=== PATIENT | male | born 1985 | race Caucasian/White ===

== ENCOUNTER 2019-08-01 13:58 | Inpatient (IN) | payer OTHER ==
[~2019-08-01] VITALS: Ht 175.2 cm; Wt 68.0 kg
[2019-08-01 14:17] VITALS: BP 139/89
--- NOTE | 2019-08-01 14:46 | NUR ---
PATIENT MEETS [facility]. PATIENT WANT[place] [facility] [place]. [place] WILL FOLLOW UP WITH PATIENT. JUAN C BRUNO B.A. LAMP STACK DEVELOPER
[2019-08-01 15:15] LABS: BASO # 0.1 10*3/uL (0.0-0.1); BASO % 0.9 % (0.0-1.0); EOS # 0.2 10*3/uL (0.0-0.4); EOS % 1.9 % (1.0-4.0); HEMATOCRIT 47.8 % (42.0-52.0); HEMOGLOBIN 15.2 g/dl (14.0-18.0); LYMPH # 2.1 10*3/uL (1.3-4.4); LYMPH % 27.1 % (27.0-41.0); MEAN CELL VOLUME 87.1 fl (80.0-94.0); MEAN CORPUSCULAR HGB 27.7 pg (27.0-31.0); MEAN CORPUSCULAR HGB CONC 31.8 g/dl (33.0-37.0); MEAN PLATELET VOLUME 10.3 fl (9.6-12.3); MONO # 0.4 10*3/uL (0.1-1.0); NEUT # 5.1 10*3/uL (2.3-7.9); NEUT % 64.8 % (47.0-73.0); PLATELET COUNT AUTOMATED 275 10*3/uL (130-400); RED BLOOD COUNT 5.49 10*6/uL (4.50-5.90); RED CELL DISTRI WIDTH 13.5 % (0-14.5); WHITE BLOOD COUNT 7.8 10*3/uL (4.8-10.8)
[2019-08-01 15:30] VITALS: BP 130/95
[2019-08-01 15:30] LABS: ALBUMIN 3.8 gm/dl (3.1-4.5); ALKALINE PHOSPHATASE 91 U/L (45-117); BUN 9 mg/dl (7-24); CHLORIDE 102 mmol/L (98-107); CREATININE 0.89 mg/dL (0.70-1.30); POTASSIUM 3.6 mmol/L (3.5-5.1); SGOT/AST 32 IU/L (3-35); SGPT/ALT 69 U/L (12-78); SODIUM 138 mmol/L (136-145); TOTAL PROTEIN 8.6 gm/dL (6.4-8.2)
--- NOTE | 2019-08-01 15:40 | NUR ---
34 year old MALE admitted to room # 516 for stabilization. 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 Compliant with admission procedure. Patient denies any anxiety, but is C/O RESTLESS LEGS AND COLD SWEATS. SEE ADMISSION ASSESSMENT.
[2019-08-01 15:44] LABS: URINE AMPHETAMINES > 1000 (1000ng/ml); URINE BARBITURATES < 200 (200ng/ml); URINE BENZODIAZEPINES < 200 (200ng/ml); URINE CANNABINOIDS (THC) < 50 (50ng/ml); URINE COCAINE < 300 (300ng/ml); URINE METHADONE < 300 (300ng/ml); URINE OPIATES < 300 (300ng/ml)
[2019-08-01 15:48] LABS: URINE PHENCYCLIDINE < 25 (25ng/ml)
--- NOTE | 2019-08-01 16:00 | NUR ---
PATIENT MEDICATED WITH REQUIP AT THIS TIME PER ORDER FOR COMPLAINTS OF RESTLESS LEGS. WILL MONITOR FOR EFFECTIVENESS.
[2019-08-01 16:53] VITALS: BP 129/86
--- NOTE | 2019-08-01 17:30 | NUR ---
PER PATIENT, REQIP HAS BEEN EFFECTIVE. NO FURTHER COMPLAINTS AT THIS TIME. RESTING.
--- NOTE | 2019-08-01 19:50 | NUR ---
PATIENT IS RESTING IN BED WITH EASY AND REGULAR RESPERS ON ROOM AIR. ASSESSMENT IS COMPLETE. PATIENT IS DIAPHORETIC AND C/O ANXIETY AND RESTLESS LEGS. PRN VISTARIL GIVEN FOR ANXIETY, PRN MEDICATION FOR RESTLESS LEGS NOT DUE. BED IS LOW, LOCKED, AND CALL LIGHT IS WITHIN REACH. WILL CONTINUE TO MONITOR, SEE SHIFT ASSESSMENT.
[2019-08-01 20:00] VITALS: BP 133/85
[2019-08-02] VITALS: BP 124/80
[2019-08-02 08:00] VITALS: BP 115/75
--- NOTE | 2019-08-02 08:50 | NUR ---
PT SITTING UP IN BED, ALERT ORIENTED AND COOPERATIVE WITH CARE. ASSESSMENT COMPLETE. PT DENIES ANY NEW WITHDRAWAL SYMPTOMS. NO S/S OF DISTRESS. SCHEDULED MEDICATIONS GIVEN AT THIS TIME. WILL CONTINUE TO MONITOR. CALL LIGHT IN REACH.
[2019-08-02 12:00] VITALS: BP 115/78
--- NOTE | 2019-08-02 12:00 | NUR ---
PT DENIES WITHDRAWAL S/S AT THIS TIME. MEDICAITONS GIVEN PER ORDERS. CALL LIGHT IN REACH.
--- NOTE | 2019-08-02 15:00 | NUR ---
[place] STAFF SPOKE WITH [facility]. PATIENT HAS BEEN ACCEPTED AND THEY STATED THAT THEY WILL TRANSPORT PATIENT ONCE HE IS DISCHARGED. JUAN C BRUNO B.A. MACHINE VENEER REPAIRER
[2019-08-02 16:00] VITALS: BP 129/82
[2019-08-02 20:00] VITALS: BP 127/87
--- NOTE | 2019-08-02 21:19 | NUR ---
PATIENT REQUESTING MEDICATION FOR HEADACHE,MUSCLE ACHES AND CRAMPING, AND ANXIETY. MOTRIN, REQUIP, ROBAXIN, AND VISTARIL ADMINISTERED PRESCRIBED. WILL MONITOR FOR EFFECTIVENESS.
--- NOTE | 2019-08-02 22:19 | NUR ---
PATIENT STATES THAT MOTRIN, REQUIP, ROBAXIN, AND VISTERIL WERE EFFECTIVE. WILL CONTINUE TO MONITOR.
--- NOTE | 2019-08-02 23:19 | NUR ---
PATIENT REQUESTING MEDICATION FOR SLEEP. TRAZADONE ADMINISTERED PRESCRIBED. WILL MONITOR FOR EFFECTIVENESS.
[2019-08-03] VITALS: BP 116/82; BP 117/91
--- NOTE | 2019-08-03 00:19 | NUR ---
PATIENT RESTING WITH EYES CLOSED. RESPIRATIONS EASY AND UNLABORED. CALL LIGHT IN REACH. WILL MONITOR.
--- NOTE | 2019-08-03 02:09 | NUR ---
24 HR chart check completed.
--- NOTE | 2019-08-03 03:12 | NUR ---
PATIENT RESTING WITH EYES CLOSED. RESPIRATIONS EASY AND UNLABORED. CALL LIGHT IN REACH. WILL MONITOR.
--- NOTE | 2019-08-03 07:40 | NUR ---
Patient resting quietly with no c/o discomfort. Respirations easy and regular. Vital signs stable. No overt distress. ARETHA ROSEN
[2019-08-03 08:00] VITALS: BP 115/84
--- NOTE | 2019-08-03 11:25 | NUR ---
PATIENT IS GOING TO [facility] FOR RESIDIDENTIAL TREATENT. PATIENT IS SCHEDULED FOR TUESDAY, July. PATIENT WILL NEED TO CONTACT FACILITY FOR TRANSPORTATION. [facility] WILL TRANSPORT HIM. [place] STAFF PROVIDE PATIENT WITH CONTACT INFORMATION. PATIENT AGREES AND UNDERSTANDS HIS AFTERCARE PLAN. JUAN C BRUNO B.A. CINDER WORKER
[2019-08-03 12:00] VITALS: BP 120/78
[2019-08-03 16:00] VITALS: BP 130/90
[2019-08-03 20:00] VITALS: BP 128/81
--- NOTE | 2019-08-03 20:46 | NUR ---
PATIENT REQUESTING MEDICATION FOR ABDOMINAL CRAMPING AND ANXIETY. BENTYL AND VISTARIL ADMINISTERED PRESCRIBED. WILL MONITOR FOR EFFECTIVENESS.
--- NOTE | 2019-08-03 21:46 | NUR ---
PATIENT STATES THAT ANXIETY AND STOMACH CRAMPING IS BETTER AT THIS TIME. WILL MONITOR.
[2019-08-04] VITALS: BP 120/79
--- NOTE | 2019-08-04 00:25 | NUR ---
PATIENT REQUESTING MEDICATION TO SLEEP. TRAZODONE ADMINISTERED PRESCRIBED. WILL MONITOR FOR EFFECTIVENESS.
--- NOTE | 2019-08-04 01:07 | NUR ---
24 HR chart check completed.
--- NOTE | 2019-08-04 07:35 | NUR ---
Patient resting quietly with no c/o discomfort. Respirations easy and regular. Vital signs stable. No overt distress. ARETHA ROSEN
[2019-08-04 08:00] VITALS: BP 112/89
--- NOTE | 2019-08-04 09:45 | NUR ---
FOR THE PAST 50 MINUTES PT AND I HAVE BEEN TRYING TO GET [facility], NO ANSWER GOES STRAIGHT TO [employer], BOUFFANT CURTAIN MACHINE TENDER UPDATED, TWO DIFFERENT NUMBERS WERE CALLED NO ANSWER GOES STRAIGHT TO [employer]. WILL CONTINUE TO KEEP TRYING TO CALL
--- NOTE | 2019-08-04 10:01 | NUR ---
PT UPDATED ME THAT [facility] CALLED PT AND THEY WILL BE HERE IN AN HR TO AND HR AND A HALF. [facility] IS REQUESTING PT MEDICAL RECORDS WHICH WE WILL PROVIDE
--- NOTE | 2019-08-04 10:14 | NUR ---
DISCHARGE INSTRUCTIONS GIVEN/EXPLAINED TO PT. PT AWARE GOING TO [facility], NO IV, PT STABLE, PT DENIED QUESTIONS, MEDICAL RECORDS GIVEN TO PT TO GIVE TO [facility]
--- NOTE | 2019-08-04 11:40 | NUR ---
PT LEFT AT THIS TIME TO [facility] WITH BELONGINGS, AND PAPERS, PT STABLE
== END 2019-08-04 11:44 | DRG 773 ==
LOC: ED 13:58 → EDHOLD 14:54 → 5E 14:54
PROVIDERS: Internal Medicine; Physician Assistant; ADMIT Internal Medicine
DX: F11.23 Opioid dependence with withdrawal (principal); F15.10 Other stimulant abuse, uncomplicated; F41.9 Anxiety disorder, unspecified; R73.9 Hyperglycemia, unspecified